=== PATIENT | female | born 1995 | race American Indian/Alaskan Native ===

== ENCOUNTER 2018-06-08 11:31 | Emergency (ER) | payer OTHER ==
[2018-06-08 11:46] VITALS: BP 108/72; PULSE 88; RESP 16; TEMP 98.5; O2SAT 99
--- NOTE | 2018-06-08 13:23 | ED PDOC ---
HPI: General Adult Time Seen by Provider: 06/08/18 13:21 Chief Complaint (Nursing): Finger,Hand,&Wrist Chief Complaint (Provider): wrist injury History Per: Patient (22 y/o female here with fall today and landing on right hand/wrist/elbow. Patient is right hand dominant. Did not take any medication prior to arrival. ) Past Medical History Reviewed: Historical Data, Nursing Documentation, Vital Signs Vital Signs: Last Vital Signs Temp 98.5 F 06/08/18 11:44 Pulse 88 06/08/18 11:44 Resp 16 06/08/18 11:44 BP 108/72 06/08/18 11:44 Pulse Ox 99 06/08/18 11:44 - Medical History PMH: Anxiety, Bipolar Disorder, Depression, Schizophrenia Denies: Asthma, Atrial Fibrillation, Cardia Arrhythmia, CHF, Diabetes, He patitis, HIV, HTN, Mitral Valve Prolapse, Peripheral Edema, Chronic Kidney Disease, Seizures, Sexually Transmitted Disease, Sleep Apnea - Surgical History Surgical History: Denies: Pacemaker - Family History Family History: States: Unknown Family Hx - Immunization History Hx Tetanus Toxoid Vaccination: No (unknown) Hx Influenza Vaccination: No Hx Pneumococcal Vaccination: No - Home Medications Home Medications: Ambulatory Orders Medication Instructions Recorded ARIPiprazole [Abilify] 10 mg PO DAILY #14 tab 08/27/17 Docusate [Colace] 100 mg PO BID #14 cap 08/27/17 FLUoxetine [Prozac] 20 mg PO DAILY #14 cap 08/27/17 OLANZapine [Zyprexa Zydis] 5 mg PO AMHS #30 odt 08/27/17 Naproxen 375 mg PO Q8 PRN #21 tablet 06/08/18 - Allergies Allergies/Adverse Reactions: Allergies Allergy/AdvReac Type Severity Reaction Status Date / Time No Known Allergies Allergy Verified 01/26/18 08:24 Review of Systems ROS Statement: Except As Marked, All Systems Reviewed And Found Negative Musculoskeletal: Positive for: Hand Pain Physical Exam - Reviewed Nursing Documentation Reviewed: Yes Vital Signs Reviewed: Yes - Physical Exam Appears: Positive for: Well, Non-toxic, No Acute Distress Head Exam: Positive for: ATRAUMATIC, NORMAL INSPECTION, NORMOCEPHALIC Skin: Positive for: Normal Color, Warm, DRY Eye Exam: Positive for: EOMI, Normal appearance, PERRL ENT: Positive for: Normal ENT Inspection Neck: Positive for: Normal, Painless ROM Cardiovascular/Chest: Positive for: Regular Rate, Rhythm Respiratory: Positive for: CNT, Normal Breath Sounds Gastrointestinal/Abdominal: Positive for: Normal Exam, Soft Back: Positive for: Normal Inspection Extremity: Positive for: Tenderness (right wrist tenderness dorsum of wrist. no ecchymosis), Swelling (swelling dorsum of hand. ). Negative for: Normal ROM (Elbow: minimal tenderness elicited. No swelling noted.) Neurologic/Psych: Positive for: Alert, Oriented - ECG O2 Sat by Pulse Oximetry: 99 - Progress ED Course And Treament: tylenol 975mg x dose Placed in thumb spica splint xry of hand: neg for fx xry of wrist neg for fx xry of elbow: neg for fx Disposition - Clinical Impression Clinical Impression: Wrist injury - Patient ED Disposition Is Patient to be Admitted: No - Disposition Referrals: Rogelio Dowd III, MD [Staff Provider] - Disposition: Routine/Home Disposition Time: 13:25 Condition: FAIR Prescriptions: Naproxen 375 mg PO Q8 PRN #21 tablet PRN Reason: Pain, Moderate (4-7) Instructions: Common Wrist Injuries (DC) Forms: [facility] ED School/Work Excuse
--- NOTE | 2018-06-08 13:58 | RAD ---
Date of service: 06/08/2018 PROCEDURE: Right Wrist Radiographs. HISTORY: Posttraumatic right wrist pain COMPARISON: None. FINDINGS: BONES: Normal. No fracture. JOINTS: Normal. No dislocation. SOFT TISSUES: Normal. OTHER FINDINGS: None. IMPRESSION: Normal right wrist radiographs.
--- NOTE | 2018-06-08 13:59 | RAD ---
PROCEDURE: Right Hand Radiographs. HISTORY: FALL COMPARISON: None. FINDINGS: BONES: Normal. No fracture. JOINTS: Normal. No osteoarthritic changes. SOFT TISSUES: Normal. OTHER FINDINGS: None. IMPRESSION: Normal right hand radiographs.
--- NOTE | 2018-06-08 14:00 | RAD ---
Date of service: 06/08/2018 PROCEDURE: Radiographs of the right elbow. HISTORY: FALL COMPARISON: No prior. FINDINGS: BONES: Normal. No fracture. JOINTS: Normal. No osteoarthritis. SOFT TISSUES: Normal. JOINT EFFUSION: None. OTHER FINDINGS: None. IMPRESSION: Unremarkable radiographs of the right elbow.
== END 2018-06-08 14:09 | disposition home or self-care (01) ==
LOC: H.ER 11:31
DX: S69.91XA Unspecified injury of right wrist, hand and finger(s), initial encounter (principal); W19.XXXA Unspecified fall, initial encounter; Y92.89 Other specified places as the place of occurrence of the external cause; F20.9 Schizophrenia, unspecified; F31.9 Bipolar disorder, unspecified; F41.9 Anxiety disorder, unspecified